=== PATIENT | female | born 1935 | race Caucasian/White ===

== ENCOUNTER 2017-08-28 16:33 | Inpatient (IN) | payer MEDICARE, OTHER ==
[2017-08-28 17:24] LABS: #Eosinphils 0.1 thou/uL (0.0-0.7); #Lymphocytes 1.6 thou/uL (1.20-3.40); #Monocytes 0.5 thou/uL (0.11-0.59); %Basophils 0.1 % (0.0-1.0); %Eosinophils 0.5 % (0.0-10.0); %Lymphocytes 16.2 % (21.0-51.0); %Monocytes 4.4 % (0.0-10.0); Hematocrit 36.5 % (36.0-47.0); Mean Platelet Volume 8.4 fL (7.4-10.4); Red Blood Cell (RBC) Count 4.33 mill/uL (4.20-5.40); White Blood Cell (WBC) Count 10.1 thou/uL (4.8-10.8)
[2017-08-28 17:32] LABS: PTT 35.6 SEC (22.9-36.1); Prothrombin Time 14.7 SEC (12.0-14.7)
[2017-08-28 17:50] LABS: ALT (SGPT) 27 U/L (8-55); AST (SGOT) 30 U/L (5-34); Alkaline Phosphatase 157 U/L (40-150); Anion Gap 18 mmol/L (10-20); BUN (Urea Nitrogen) 22 mg/dL (9.8-20.1); Bilirubin, Total 0.4 mg/dL (0.2-1.2); CK (CPK) 41 U/L (29-168); Calc. Creatinine Clearance 0 mL/min (70-130); Calcium 9.1 mg/dL (7.8-10.44); Carbon Dioxide 23 mmol/L (23-31); Chloride 107 mmol/L (98-107); Estimated GFR-MDRD 56; Globulin 4.8 g/dL (2.4-3.5); Protein, Total 8.1 g/dL (6.0-8.3)
[2017-08-28 17:53] LABS: Troponin I Less than 0.010 ng/mL (< 0.028)
[2017-08-28] MEDS ORDERED: Acetaminophen 500 MG TAB ONE (18:20)
--- NOTE | 2017-08-28 18:43 | RAD ---
FRONTAL RADIOGRAPH PELVIS: 08/28/17 COMPARISON: 01/31/17 HISTORY: Fall, hip pain. FINDINGS: There is a hip arthroplasty on the right. Stool and bowel gas limits assessment of the sacrum. No wi dening of the sacroiliac joints or pubic symphysis. The pelvic ring appears intact. No displaced fra cture seen. IMPRESSION: No acute findings. POS: [facility]
--- NOTE | 2017-08-28 18:48 | RAD ---
TWO VIEWS OF THE RIGHT HIP 08/28/17 COMPARISON: 02/01/17 HISTORY: Fall, pain. FINDINGS: There is a subtle lucency involving the inferior pubic ramus on the right. This is only seen on imag e 2 of 2. This may represent a nondisplaced inferior pubic ramus fracture on the right. There is a t otal hip arthroplasty on the right demonstrating no evidence for hardware failure or dislocation. IMPRESSION: Questionable nondisplaced fracture involving the inferior pubic ramus on the right. This may be bett er assessed via CT. POS: [facility]
[2017-08-28 19:07] LABS: Bilirubin Small (Negative); Glucose, Urine (Dipstick) Negative (Negative); Ketone, Urine Negative (Negative); Nitrite Negative (Negative); Protein, Urine (Dipstick) 30 mg/dL (Neg-Trace)
[2017-08-28 19:08] LABS: Bacteria/HPF None Seen HPF (None Seen); Squamous Epithelial 0-3 HPF (0-3); WBC/HPF 0-3 HPF (0-3)
[2017-08-28 19:19] LABS: Blood, Urine Small (Negative); Hyaline Casts/LPF 7-10 HYALINE CAST LPF (0-3 Hyaline)
[2017-08-28] MEDS ORDERED: Lidocaine 1% w/Epinephrine 1:200K 30 ML VIAL ONE (19:44)
--- NOTE | 2017-08-28 19:46 | RAD ---
TWO VIEWS OF THE RIGHT KNEE 08/28/17 COMPARISON: None. HISTORY: Fall, knee pain. FINDINGS: The lateral exam is limited secondary to technique, specifically assessment of the suprapatellar bur sa and for evidence of a knee joint effusion. There is patellofemoral joint space narrowing and post erior patellar osteophyte formation. The bones are osteopenic, limiting detailed assessment for a no ndisplaced fracture. No displaced fracture or evidence of dislocation seen. IMPRESSION: Limited examination demonstrates osteopenia with no displaced fracture or evidence of dislocation. POS: [facility]
--- NOTE | 2017-08-28 19:49 | RAD ---
FRONTAL AND LATERAL IMAGING OF THE RIGHT FEMUR: 08/28/17 COMPARISON: None. HISTORY: Trauma, fall, pain. FINDINGS: The bones are osteopenic. There is a total hip arthroplasty on the right. There is no displaced frac ture or evidence of dislocation seen. The questionable fracture involving the inferior pubic ramus o n the right seen on image 2 of 2 on the right hip series is not seen on this exam. This suggests nannette t this is probably artifactual in nature. Thus, a CT examination of the pelvis is only recommended i f there is convincing clinical signs and symptoms of possible radio-occult fracture in this region. IMPRESSION: Osteopenia with no displaced fracture or dislocation seen. POS: [facility]
--- NOTE | 2017-08-28 19:51 | CT ---
HEAD CT WITHOUT CONTRAST 08/28/17 COMPARISON: 10/15/15 HISTORY: Fall, head trauma, pain. TECHNIQUE: Serial axial CT imaging at 5 mm intervals from vertex through skull base without contrast. FINDINGS: The imaged paranasal sinuses/mastoid air cells are well aerated. No displaced calvarial fracture. No intracranial hemorrhage, midline shift, mass effect, or ventricular enlargement. Mild diffuse cer ebral volume loss is noted. IMPRESSION: No displaced fracture or evidence of intracranial hemorrhage seen. POS: [facility]
[2017-08-28] MEDS ORDERED: Ondansetron HCl/PF 4 MG/2 ML Vial IVP PRN (20:08)
[2017-08-28] MEDS ORDERED: Dextrose 5% in Water 1,000 ML IV PRN (20:08)
[2017-08-28] MEDS ORDERED: Dextrose 50% Abboject 50 ML SYRINGE SLOW IVP PRN (20:08)
[2017-08-28] MEDS ORDERED: traMADol HCl 50 MG TAB PO PRN ×2 (20:12)
[2017-08-28] MEDS ORDERED: Adacel (T-DAP) 0.5 ML VIAL ONE (20:14)
[2017-08-28] MEDS ORDERED: CEFAZOLIN/Water 2 GM/20 ML SYRINGE ONE (20:14)
[2017-08-28] MEDS ORDERED: Bisacodyl 10 MG SUPP PR PRN (20:16)
[2017-08-28] MEDS ORDERED: Milk Of Magnesia 30 ML UDCUP PO PRN (20:16)
[2017-08-28] MEDS ORDERED: Donepezil HCl 5 MG TAB PO SCH (21:00)
[2017-08-28] MEDS: Ibuprofen 600 MG TAB PO SCH (22:07)
[2017-08-28] MEDS: Ascorbic Acid 500 mg Chewable Tablet PO SCH (22:07)
[2017-08-28] MEDS: Senokot S 8.6-50 MG TAB PO SCH (22:08)
[2017-08-28 22:38] VITALS: BMI 23.1
[2017-08-28] MEDS: Acetaminophen 500 MG TAB PO SCH (23:46)
--- NOTE | 2017-08-29 00:15 | HP ---
DATE OF ADMISSION: 08/28/2017 PRIMARY CARE PHYSICIAN: Dr. Adrian Del Rosario. HISTORY OF PRESENT ILLNESS: This is an 81-year-old woman with history of senile dementia of Alzheimer's type. Patient is a resident of an extended care facility. The patient was brought t o the emergency department today following an apparent ground level fall. Patient does not recall t he specifics of the fall. She did have brief loss of consciousness. Upon awakening, she was compla ining of right hip and bilateral knee pain. Patient was brought to the emergency department and arr ived hemodynamically stable. Isaac coma scale noted at E4, V4, M6. She moves all her extremities and answers questions appropriately, although has evidence of memory deficits. She denied any dysp coby, syncope, chest, or abdominal pain. PAST MEDICAL HISTORY: Significant for right hip fracture from previous ground level fall in 01/2017 . Other medical history includes left breast ductal carcinoma, senile dementia of Alzheimer's type, essential hypertension, and degenerative arthritic disease involving both knees. SURGICAL HISTORY: Significant for right hip hemiarthroplasty in 01/2017. SOCIAL HISTORY: Patient has no history of cigarette smoking, ethanol, or illicit drug abuse. She r esides in an extended care facility. FAMILY HISTORY: Noncontributory for this patient's age. PREHOSPITALIZATION MEDICATION: Includes Namenda, hydrochlorothiazide, donepezil, and anastrozole. Specific dosages of these medications will be reconciled from [facility] records. ALLERGIES: Patient has no known drug allergies. REVIEW OF SYSTEMS: Ten-point review of system is essentially unremarkable except for as stated in t he past medical history and chief complaint. PHYSICAL EXAMINATION: GENERAL: This reveals an 81-year-old, slightly confused, but interactive woman who is in no acute d istress at the time of my evaluation. VITAL SIGNS: Includes blood pressure 161/87, pulse 76, respirations 17, temperature 98.4 degrees Fa hrenheit, oxygen saturation 98% on room air. HEENT EXAMINATION: Reveals a 3 cm vertical occipital scalp laceration, which was not actively bleed ing at the time of my evaluation. Pupils are equally round and reactive to light and accommodation. Extraocular muscles are intact bilaterally. She has no scleral icterus present. Midface is stabl e. No gross deformities or step-offs are present. Nares are patent, no discharge. Tympanic membra lala are visualized. No hemotympanum is present. Cervical spine is nontender to palpation, active o r passive range of motion. CHEST: Chest wall is stable. She has no gross deformities or step-offs present. HEART: Reveals regular rate and rhythm, no murmurs or gallops auscultated. LUNGS: Clear to auscultation bilaterally. Her breathing is regular and unlabored. ABDOMEN: Soft, nontender, and nondistended. Liver and spleen are nonpalpable below costal margins. Pelvis is stable, although the patient does have tenderness to palpation of the right pelvis. EXTREMITIES: Reveals 2+ radial and pedal pulses bilaterally. She has trace bilateral ankle edema p resent. Both knees are swollen with no significant bony deformities present. There is slight tende rness to palpation of both knees; however, when the knees were flexed, the patient had exhibited no pain. She did have a moderate tenderness to flexion of the right hip. NEUROLOGIC: Cranial nerves II through XII are grossly intact bilaterally. The patient has no focal neurologic deficits present. MUSCULOSKELETAL EXAMINATION: Reveals 5/5 muscle strength in bilateral upper and left lower extremit ies. Range of motion about the right hip is restricted due to the pain. Thoracic and lumbar spine are nontender to palpation. PERTINENT LABORATORY DATA AND IMAGING: Today includes a CBC with 10,100 white blood cells, hemoglob in is 11.5, hematocrit is 36.5, platelet count is 272,000. Metabolic profile: Sodium 144, potassiu m is 4.2, chloride is 107, bicarbonate 23, BUN 22, creatinine 0.96, glucose 100, total bilirubin 0.4 , AST and ALT are normal at 30 and 27 respectively. Alkaline phosphatase is elevated at 157. Abdom en is slightly low at 3.3. Troponin I is less than 0.010. PTT and INR are normal at 35.6 seconds a nd 1.1 respectively. I have personally reviewed all radiographic studies including a CT scan of the brain, which is unremarkable for any acute intracranial pathology. X-ray of the right knee reveals no fractures or dislocation. X-ray of the right femur reveals no fractures or dislocation. X-ray of the pelvis as well as right hip reveals nondisplaced right inferior pubic ramus fracture. IMPRESSION: 1. Status post ground level fall. 2. Nondisplaced right inferior pubic ramus fracture. 3. A 3 cm occipital scalp laceration. 4. Acute traumatic brain injury with cerebral concussion. 5. Senile dementia of Alzheimer's type. 6. Essential hypertension. 7. Degenerative arthritic disease. PLAN: 1. Closure of the occipital scalp laceration. 2. We will obtain Orthopedic surgical consultation with Dr. Wihteside regarding the inferior pubic ra mus fracture. 3. Initiate physical and occupational therapy in anticipation for possible discharge to inpatient r ehabilitation. 4. Monitor and control hypertension. 5. Initiate pharmacological VTE prophylaxis. Above findings and plan discussed with the patient wh o indicates apparent understanding of the information provided. I have answered the questions.
[2017-08-29 04:37] LABS: Anion Gap 10 mmol/L (10-20); BUN (Urea Nitrogen) 25 mg/dL (9.8-20.1); Calc. Creatinine Clearance 49 mL/min (70-130); Calcium 8.5 mg/dL (7.8-10.44); Carbon Dioxide 28 mmol/L (23-31); Chloride 108 mmol/L (98-107); Estimated GFR-MDRD 62
[2017-08-29] MEDS: Ibuprofen 600 MG TAB PO SCH ×2 (05:31→05:54)
[2017-08-29] MEDS: Acetaminophen 500 MG TAB PO SCH ×3 (05:32→12:45)
[2017-08-29] MEDS ORDERED: Ferrous Gluconate 324 MG TAB PO SCH (08:00)
[2017-08-29] MEDS ORDERED: Calcium Carbonate + Vit D 1 TAB PO SCH (09:00)
[2017-08-29] MEDS ORDERED: Docusate 100 MG CAP PO SCH (09:00)
[2017-08-29] MEDS ORDERED: Hydrochlorothiazide 25 MG TAB PO SCH (09:00)
[2017-08-29] MEDS ORDERED: Anastrozole 1 MG TAB PO SCH (09:00)
[2017-08-29] MEDS ORDERED: Enoxaparin Sodium 30 MG/0.3 ML SYRINGE SC SCH (09:00)
[2017-08-29] MEDS: Ascorbic Acid 500 mg Chewable Tablet PO SCH (09:27)
[2017-08-29] MEDS: Senokot S 8.6-50 MG TAB PO SCH (09:28)
[2017-08-29 12:56] VITALS: BP 174/82; TEMP 97.8
--- NOTE | 2017-08-31 13:20 | DIS ---
DATE OF ADMISSION: 08/28/2017 DATE OF DISCHARGE: 08/29/2017 ADMISSION DIAGNOSES: 1. Status post ground level fall. 2. Nondisplaced right inferior pubic rami fracture. 3. A 3 cm occipital scalp laceration. 4. Acute traumatic brain injury with cerebral concussion. 5. Senile dementia of Alzheimer's type. 6. Essential hypertension. 7. Degenerative arthritic disease. CONSULTATIONS: Orthopedics, Dr. Whiteside. PROCEDURES: None. SUMMARY: The patient is an 81-year-old female who reportedly fell at her nursing facility, who was brought to the emergency department, evaluated and examined and found to have the above injuries. T he patient would have her scalp laceration repaired in the emergency department and per Dr. Whiteside' s consultation, the patient will be weightbearing as tolerated and had a nonoperative orthopedic inj ury. The patient, the following morning neurologically was back to her baseline. Her pain was cont rolled. She was tolerating a diet. She was ambulating with assistance. The patient will be discha rged back to her facility and she will follow up with Dr. Whiteside in 2-3 weeks, sooner as needed. T he patient may also follow up with the trauma clinic as needed.
--- NOTE | 2017-10-17 15:26 | EKG ---
Test Reason : Blood Pressure : / mmHG Vent. Rate : 069 BPM Atrial Rate : 069 BPM P-R Int : 128 ms QRS Dur : 080 ms QT Int : 406 ms P-R-T Axes : 031 -25 003 degrees QTc Int : 435 ms Sinus rhythm with Premature atrial complexes Nonspecific ST abnormality No STEMI Abnormal ECG Confirmed by KY GONZALEZ M.D. ([id number]), health editor GERALD WESLEY ([id number]) on 10/17/2017 3:25:59 PM Referred By: Confirmed By:KY GONZALEZ M.D.
== END 2017-08-29 13:48 | DRG 536 ==
LOC: ERS 16:33 → SJJU 19:38
PROVIDERS: ADMIT Surgery; ATTEND Surgery
DX: S32.591B Other specified fracture of right pubis, initial encounter for open fracture (principal); G30.1 Alzheimer's disease with late onset; F02.80 Dementia in other diseases classified elsewhere, unspecified severity, without behavioral disturbance, psychotic disturbance, mood disturbance, and anxiety; I10 Essential (primary) hypertension; S06.0X1A Concussion with loss of consciousness of 30 minutes or less, initial encounter; S01.01XA Laceration without foreign body of scalp, initial encounter; W19.XXXA Unspecified fall, initial encounter; M17.0 Bilateral primary osteoarthritis of knee
CPT/HCPCS: 12002; 36415; 51701; 70450; 72170; 80048; 80053; 81003; 81015; 82550; 82553; 84484; 85025; 85610; 85730; 90471; 90715; 93005; 96374; A4353; G0390; J1650

== ENCOUNTER 2017-10-20 10:14 | Emergency (ER) | payer MEDICARE ==
[2017-10-20] MEDS ORDERED: Ondansetron HCl/PF 4 MG/2 ML Vial ONE (11:02)
[2017-10-20 11:33] LABS: #Lymphocytes 1.5 thou/uL (1.20-3.40); #Monocytes 0.4 thou/uL (0.11-0.59); #Neutrophils 9.5 thou/uL (1.40-6.50); %Basophils 0.2 % (0.0-1.0); %Eosinophils 0.4 % (0.0-10.0); %Lymphocytes 13.4 % (21.0-51.0); %Monocytes 3.2 % (0.0-10.0); %Neutrophils 82.9 % (42.0-75.0); Hemoglobin 12.1 g/dL (12.0-16.0); Mean Corpuscular HGB CONC 31.2 g/dL (32.0-36.0); Mean Corpuscular Hemoglobin 26.3 pg (27.0-31.0); Mean Corpuscular Volume 84.2 fl (81.0-99.0); Mean Platelet Volume 8.7 fL (7.4-10.4); Platelet Count 259 thou/uL (130-400); RBC Distribution Width 13.3 % (11.5-14.5); Red Blood Cell (RBC) Count 4.62 mill/uL (4.20-5.40); White Blood Cell (WBC) Count 11.5 thou/uL (4.8-10.8)
[2017-10-20 11:40] LABS: Bilirubin Negative (Negative); Blood, Urine Negative (Negative); Clarity CLEAR (Clear); Glucose, Urine (Dipstick) Negative (Negative); Leukocyte Negative (Negative); Nitrite Negative (Negative); Protein, Urine (Dipstick) Trace mg/dL (Neg-Trace); Specific Gravity, Urine 1.024 (1.002-1.036); pH, Urine 6.5 (5.0-9.0)
[2017-10-20 11:47] LABS: ALT (SGPT) 35 U/L (8-55); AST (SGOT) 61 U/L (5-34); Albumin 2.9 g/dL (3.4-4.8); Alkaline Phosphatase 190 U/L (40-150); Anion Gap 15 mmol/L (10-20); BUN (Urea Nitrogen) 42 mg/dL (9.8-20.1); Bilirubin, Total 0.4 mg/dL (0.2-1.2); CK (CPK) 31 U/L (29-168); Calc. Creatinine Clearance 0 mL/min (70-130); Calcium 9.2 mg/dL (7.8-10.44); Carbon Dioxide 25 mmol/L (23-31); Chloride 104 mmol/L (98-107); Estimated GFR-MDRD 45; Globulin 5.3 g/dL (2.4-3.5); Glucose 126 mg/dL (83-110); Lipase 13 U/L (8-78); Potassium 4.9 mmol/L (3.5-5.1); Protein, Total 8.2 g/dL (6.0-8.3); Sodium 139 mmol/L (136-145)
--- NOTE | 2017-10-20 13:21 | CT ---
CT ABDOMEN AND PELVIS WITH CONTRAST: Date: 10/20/17 HISTORY: Trauma. Fall. COMPARISON: Hip radiographs dated 08/28/17. FINDINGS: There are some reticulonodular opacities in the right lung base. There are also some tree-in-bud opac ities associated with this. Atelectatic changes left lower lobe. No pericardial effusion. There is extensive heterogeneous appearance to the liver. Some of these foci appear round. With the correct windowing, there appear to be round foci of hypodense areas throughou t the liver, some with central necrosis. Small volume free fluid in the pelvis. Mild diverticular disease. No active inflammation. There is healing right superior inferior pubic ramus fracture with callus formation. There are compre ssion fractures of L5, L3, L2, and L1. There is insufficiency fracture on the right S1, S2, and S3. T here are some abnormal areas of sclerosis within the L3 vertebral body, as well as of the vertebral b emily of T12 ascending to the posterior elements. There are healing left-sided rib fractures, incomplet mickey evaluated. There is cholelithiasis. Dense vascular calcifications of the aorta. The superior mesenteric vein is dilated. IMPRESSION: 1. Very heterogeneous appearance to the liver. With correct windowing, there appear to be numerous h ypodense masses, some with central necrosis, concerning for metastatic disease. 2. Compression deformities throughout the thoracolumbar spine appear subacute to acute. 3. Healing right superior and inferior pubic ramus fractures. 4. Right sacral ala insufficiency fracture S1-S3 with sclerosis. 5. Abnormal sclerosis of the T12 and L3 vertebral bodies concerning for osseous metastatic disease. 6. Healing left-sided rib fractures. 7. Reticulonodular opacities right lung base may represent pneumonia. 8. Abnormal left axillary and low axillary lymph nodes concerning for metastatic disease. 9. Fracture of the right acetabulum seen to the right pubic root. 10. Heterogeneity of the left femur, as well as iliac bone, concerning for metastatic disease. Dr. Yun notified of the findings via telephone at 1230 hours. CODE CR. POS: [facility]
[2017-10-20] MEDS ORDERED: ISOVUE-370 76%-LOCM 1 ML ONE (13:59)
== END 2017-10-20 14:06 | disposition home or self-care (01) ==
LOC: ERS 10:14
DX: F03.90 Unspecified dementia, unspecified severity, without behavioral disturbance, psychotic disturbance, mood disturbance, and anxiety (principal); C50.919 Malignant neoplasm of unspecified site of unspecified female breast; C79.51 Secondary malignant neoplasm of bone; I10 Essential (primary) hypertension; Z79.899 Other long term (current) drug therapy; W07.XXXA Fall from chair, initial encounter; Y92.129 Unspecified place in nursing home as the place of occurrence of the external cause
CPT/HCPCS: 36415; 51701; 74177; 80053; 81003; 82550; 83605; 83690; 85025; 96361; 96374; A4353; J2405